=== PATIENT | female | born 1995 | race Caucasian/White ===

== ENCOUNTER 2022-10-04 14:11 | Emergency (ER) | payer SELFPAY ==
[2022-10-04] MEDS ORDERED: Lidocaine 1% PF 5 ML VIAL ONE (15:11)
== END 2022-10-04 15:57 | disposition home or self-care (01) ==
LOC: ERS 14:11
DX: L02.01 Cutaneous abscess of face (principal); E10.9 Type 1 diabetes mellitus without complications; Z79.4 Long term (current) use of insulin
CPT/HCPCS: 10060

== ENCOUNTER 2022-10-23 09:32 | Inpatient (IN) | payer SELFPAY ==
[2022-10-23] MEDS ORDERED: Morphine 2 MG/ML VIAL ONE (10:05)
[2022-10-23] MEDS ORDERED: Ondansetron PF 4 MG/2 ML Vial ONE (10:05)
[2022-10-23 10:26] LABS: Analyzer IN Cardio ER; Base Excess -27.1 mEq/L (-2.0 to +3.0); Calcium, Ionized (venous) 0.98 mmol/L (1.16-1.32); Chloride (VBG) 102 mmol/L (98-106); Hemoglobin (Hb) 16.4 g/dL (11.7-15.5); Sodium 128.7 mmol/L (133-146)
[2022-10-23 10:37] LABS: pH (venous) 6.95 (7.32-7.43)
[2022-10-23 10:38] LABS: Actual Bicarbonate (HCO3v) 4 mEq/L (22-28); Potassium (VBG) 7.78 mmol/L (3.70-5.30)
[2022-10-23 10:55] LABS: Bacteria/HPF None Seen HPF (None Seen); Bilirubin Negative (Negative); Blood, Urine Negative (Negative); Clarity Clear (Clear); Glucose, Urine (Dipstick) Greater than 1000 mg/dL (Negative); Ketone, Urine Greater than 150 mg/dL (Negative); Leukocyte Negative Leu/uL (Negative); Nitrite Negative (Negative); Protein, Urine (Dipstick) 70 mg/dL (Neg-Trace); RBC/HPF None Seen HPF (0-3); Specific Gravity, Urine 1.026 (1.002-1.036); Squamous Epithelial 0-3 HPF (0-3); Urobilinogen Normal mg/dL (Less than 2); WBC/HPF 0-3 HPF (0-3)
[2022-10-23 11:05] LABS: Hemoglobin 14.2 g/dL (12.0-16.0); Mean Corpuscular HGB CONC 31.5 g/dL (32.0-36.0); Mean Corpuscular Hemoglobin 27.3 pg (27.0-31.0); Mean Corpuscular Volume 86.6 fl (78.0-98.0); Platelet Count 336 10x3/uL (130-400); RBC Distribution Width 12.7 % (11.5-14.5); White Blood Cell (WBC) Count 22.1 10x3/uL (4.8-10.8)
[2022-10-23 11:06] LABS: Amphetamine Not Detected (NotDetected); Barbiturates Screen Not Detected (NotDetected); Benzodiazepine Screen Not Detected (NotDetected); Cocaine Metabolite Screen Not Detected (NotDetected); Methadone Not Detected (NotDetected); Methamphetamine Not Detected (NotDetected); Opiate Screen Not Detected (NotDetected); Oxycodone Screen Not Detected (NotDetected); Phencyclidine (PCP) Not Detected (NotDetected); THC/Cannabinoid Screen Not Detected (NotDetected); Tricyclic Screen Not Detected (NotDetected)
[2022-10-23 11:10] LABS: INR-International Normal Ratio 1.4; PTT 25.6 sec (22.9-36.1); Prothrombin Time 17.8 sec (12.0-14.7)
[2022-10-23 11:11] LABS: BHCG - Serum Negative (NEGATIVE); Pregs Control Background? CLEAR/WHITE (CLR/WHITE); Pregs Control Bar Appear? YES (CONTROL BAR)
[2022-10-23 11:11] LABS: SARS-CoV-2 NAA Rapid Test Not Detected (NotDetected)
[2022-10-23 11:17] LABS: ALT (SGPT) 18 U/L (8-55); AST (SGOT) 12 U/L (5-34); Acetaminophen Less than 10.0 mcg/mL (10.0-30.0); Albumin 4.1 g/dL (3.5-5.0); Alcohol Less than 10 mg/dL (Less than 10); Alkaline Phosphatase 81 U/L (40-110); BUN (Urea Nitrogen) 10 mg/dL (7.0-18.7); Bilirubin, Total 0.2 mg/dL (0.2-1.2); CK (CPK) 17 U/L (29-168); Calc. Creatinine Clearance 0 mL/min (70-130); Calcium 8.3 mg/dL (7.8-10.44); Chloride 104 mmol/L (98-107); Estimated GFR 68; Globulin 3.6 g/dL (2.4-3.5); Lipase 6 U/L (8-78); Potassium 5.3 mmol/L (3.5-5.1); Protein, Total 7.7 g/dL (6.0-8.3); Salicylate Less than 8.0 mg/dL (15.0-30.0); Sodium 131 mmol/L (136-145)
[2022-10-23 11:28] LABS: Carbon Dioxide Less than 8 mmol/L (22-29); Glucose 529 mg/dL (70-105)
[2022-10-23 11:31] LABS: Band 10 % (5-11); Lymphocytes 5 % (21-51); MDiff Complete? YES; Monocytes 4 % (0-10); Neutrophil 79 % (42-75); Platelet Morphology Comment Appears Adequate; RBC Morphology Normal; Reactive Lymphocytes 2 % (0-10)
[2022-10-23] MEDS ORDERED: Sodium Bicarb 50 MEQ/50 ML VIAL ONE (11:40)
[2022-10-23] MEDS ORDERED: INSULIN REGULAR IN 0.9 % NACL 100 UNIT/100 ML BAG ONE (12:00)
[2022-10-23] MEDS ORDERED: Cefepime 2 GM VIAL ONE (12:16)
[2022-10-23 12:44] VITALS: TEMP 97.4
[2022-10-23] MEDS ORDERED: Acetaminophen 325 MG TAB PO PRN (12:53)
[2022-10-23] MEDS ORDERED: Sodium Chloride 0.9% 1,000 ML IV PRN ×4 (12:53)
[2022-10-23] MEDS ORDERED: Dextrose 5 %-0.45 % NaCl 1,000 ML IV PRN (12:53)
[2022-10-23] MEDS ORDERED: Electrolyte Replacement Protocol 1 EACH IVPB PRN (12:53)
[2022-10-23] MEDS ORDERED: D5 1/2 NS w/20 mEq KCL 1,000 ML IV PRN (12:53)
[2022-10-23] MEDS ORDERED: NS 0.9% w/ 20 MEQ KCL 1,000 ML IV PRN ×2 (12:53)
[2022-10-23] MEDS ORDERED: Guaifenesin DM 100-10/5 ML UDCUP PO PRN (12:53)
[2022-10-23] MEDS ORDERED: Ipratropium/Albuterol 3 ML NEB NEB SCH (13:00)
[2022-10-23] MEDS ORDERED: HUMULIN R 100 UNITS in Sodium Chloride 0.9% 100 ML IVPB SCH (13:00)
[2022-10-23 13:33] LABS: Analyzer IN Cardio ER; Base Excess (BEa) -24.6 mEq/L (-2.0 to +3.0); Calcium, Ionized (arterial) 1.19 mmol/L (1.12-1.30); Carboxyhemoglobin (COHb) 0.2 gm% (0.0-3.0); O2 Tension (PaO2), arterial 131.4 mmHg (80.0-100.0); Potassium - ABG Lab 3.67 mmol/L (3.70-5.30)
[2022-10-23 13:41] LABS: BUN (Urea Nitrogen) 10 mg/dL (7.0-18.7); Calc. Creatinine Clearance 0 mL/min (70-130); Calcium 8.6 mg/dL (7.8-10.44); Chloride 109 mmol/L (98-107); Estimated GFR 65; Glucose 391 mg/dL (70-105); Potassium 4.4 mmol/L (3.5-5.1); Sodium 138 mmol/L (136-145)
[2022-10-23] MEDS ORDERED: Ipratropium/Albuterol 3 ML NEB ONE (13:53)
[2022-10-23 13:55] LABS: Carbon Dioxide Less than 8 mmol/L (22-29)
[2022-10-23] MEDS ORDERED: Azithromycin 500 MG in Sodium Chloride 0.9% 250 ML 250 ML IVPB SCH (14:00)
[2022-10-23 14:01] LABS: HIV (1/2) Antibody/Antigen Non-Reactive (NonReactive)
[2022-10-23 14:50] LABS: Actual Bicarbonate (HCO3a) 3.4 mEq/L (22-28); CO2 Tension 12.1 mmHg (35.0-45.0); Puncture Site LRA; pH, Arterial 7.07 (7.35-7.45)
[2022-10-23 14:51] LABS: ALV-art Gradient 3.205 mmHg (0-20)
[2022-10-23] MEDS ORDERED: Vancomycin 1 GM/200 ML (FROZEN) BAG ONE (15:08)
[2022-10-23 15:56] VITALS: BP 121/76
[2022-10-23] MEDS ORDERED: Cefepime 1 GM in Sodium Chloride 0.9% 100 ML IVPB SCH (23:59)
== END 2022-10-23 16:50 | disposition left against medical advice (07) | DRG 871 ==
LOC: ERS 09:32 → ERHOLD 12:15
PROVIDERS: ADMIT Internal Medicine; ATTEND Internal Medicine
DX: A41.9 Sepsis, unspecified organism (principal); E10.10 Type 1 diabetes mellitus with ketoacidosis without coma; J18.9 Pneumonia, unspecified organism; E86.0 Dehydration; F41.9 Anxiety disorder, unspecified; Z20.822 Contact with and (suspected) exposure to COVID-19; Z88.8 Allergy status to other drugs, medicaments and biological substances; Z90.49 Acquired absence of other specified parts of digestive tract; Z98.890 Other specified postprocedural states; Z86.16 Personal history of COVID-19; Z87.01 Personal history of pneumonia (recurrent); Z79.4 Long term (current) use of insulin
CPT/HCPCS: 36415; 36416; 36600; 71045; 80053; 80306; 80307; 81003; 81015; 82010; 82550; 82805; 83605; 83690; 83930; 84484; 84703; 85025; 85610; 85730; 87040; 87086; 87389; 93005; 94760; J0692; J1815; J1956; J2272; J2405; J3370-JW; J7620

== ENCOUNTER 2022-10-23 23:32 | Inpatient (IN) | payer MEDICAID, SELFPAY ==
[2022-10-24 00:24] LABS: Bilirubin Negative (Negative); Blood, Urine Negative (Negative); Clarity Clear (Clear); Glucose, Urine (Dipstick) Greater than 1000 mg/dL (Negative); Ketone, Urine Greater than 150 mg/dL (Negative); Leukocyte Negative Leu/uL (Negative); Nitrite Negative (Negative); Protein, Urine (Dipstick) 30 mg/dL (Neg-Trace); RBC/HPF 0-3 HPF (0-3); Specific Gravity, Urine 1.013 (1.002-1.036); Squamous Epithelial 0-3 HPF (0-3); Urobilinogen Normal mg/dL (Less than 2); WBC/HPF 0-3 HPF (0-3)
[2022-10-24 00:26] LABS: Bacteria/HPF 1+ HPF (None Seen)
[2022-10-24] MEDS ORDERED: Cefepime 2 GM VIAL ONE (00:26)
[2022-10-24 00:27] LABS: BHCG - Serum Negative (NEGATIVE); Pregs Control Background? CLEAR/WHITE (CLR/WHITE); Pregs Control Bar Appear? YES (CONTROL BAR)
[2022-10-24 00:29] LABS: Amphetamine Not Detected (NotDetected); Barbiturates Screen Not Detected (NotDetected); Benzodiazepine Screen Not Detected (NotDetected); Cocaine Metabolite Screen Not Detected (NotDetected); Methadone Not Detected (NotDetected); Methamphetamine Not Detected (NotDetected); Opiate Screen Not Detected (NotDetected); Oxycodone Screen Not Detected (NotDetected); Phencyclidine (PCP) Not Detected (NotDetected); THC/Cannabinoid Screen Not Detected (NotDetected); Tricyclic Screen Not Detected (NotDetected)
[2022-10-24 00:36] LABS: Analyzer IN Cardio ER; Calcium, Ionized (venous) 1.07 mmol/L (1.16-1.32); Chloride (VBG) 108 mmol/L (98-106); Potassium (VBG) 5.07 mmol/L (3.70-5.30); Sodium 133.4 mmol/L (133-146)
[2022-10-24 00:52] LABS: Hemoglobin 13.5 g/dL (12.0-16.0); Mean Corpuscular HGB CONC 33.1 g/dL (32.0-36.0); Mean Corpuscular Hemoglobin 28.2 pg (27.0-31.0); Mean Corpuscular Volume 85.2 fl (78.0-98.0); Mean Platelet Volume 10.9 fL (7.4-10.4); Platelet Count 174 10x3/uL (130-400); RBC Distribution Width 13.4 % (11.5-14.5); Red Blood Cell (RBC) Count 4.78 mill/uL (4.20-5.40); White Blood Cell (WBC) Count 13.2 10x3/uL (4.8-10.8)
[2022-10-24 00:52] LABS: pH (venous) 6.82 (7.32-7.43)
[2022-10-24 00:53] LABS: Actual Bicarbonate (HCO3v) 2 mEq/L (22-28); Base Excess -31.1 mEq/L (-2.0 to +3.0)
[2022-10-24 00:54] LABS: Band 30 % (5-11); Lymphocytes 9 % (21-51); MDiff Complete? YES; Neutrophil 61 % (42-75); Platelet Morphology Comment Appears Adequate; RBC Morphology Normal
[2022-10-24] MEDS ORDERED: INSULIN REGULAR IN 0.9 % NACL 100 UNIT/100 ML BAG ONE (01:15)
[2022-10-24 01:27] LABS: Albumin 3.8 g/dL (3.5-5.0)
[2022-10-24 01:29] LABS: Calcium 8.2 mg/dL (7.8-10.44); Chloride 109 mmol/L (98-107); Sodium 132 mmol/L (136-145)
[2022-10-24 01:30] LABS: Globulin 3.8 g/dL (2.4-3.5); Protein, Total 7.6 g/dL (6.0-8.3)
[2022-10-24 01:33] LABS: Alkaline Phosphatase 83 U/L (40-110); Calc. Creatinine Clearance 0 mL/min (70-130); Estimated GFR 62
[2022-10-24 01:34] LABS: BUN (Urea Nitrogen) 8 mg/dL (7.0-18.7)
[2022-10-24 01:35] LABS: AST (SGOT) 11 U/L (5-34); Bilirubin, Total Less than 0.2 mg/dL (0.2-1.2); Carbon Dioxide Less than 8 mmol/L (22-29); Glucose 443 mg/dL (70-105)
[2022-10-24 01:36] LABS: ALT (SGPT) 17 U/L (8-55); Lipase 7 U/L (8-78)
[2022-10-24] MEDS ORDERED: Sodium Bicarb 50 MEQ/50 ML VIAL ONE (01:37)
[2022-10-24 02:01] LABS: Alcohol Less than 10 mg/dL (Less than 10)
[2022-10-24 02:04] LABS: Acetaminophen Less than 10.0 mcg/mL (10.0-30.0); Magnesium 1.8 mg/dL (1.6-2.6); Salicylate Less than 8.0 mg/dL (15.0-30.0)
[2022-10-24] MEDS ORDERED: Dextrose 5 %-0.45 % NaCl 1,000 ML IV PRN (02:22)
[2022-10-24] MEDS ORDERED: NS 0.9% w/ 20 MEQ KCL 1,000 ML IV PRN ×2 (02:22)
[2022-10-24] MEDS ORDERED: Sodium Chloride 0.9% 1,000 ML IV PRN ×4 (02:22)
[2022-10-24] MEDS ORDERED: Electrolyte Replacement Protocol 1 EACH IVPB ONE (02:22)
[2022-10-24] MEDS ORDERED: Senokot S 8.6-50 MG TAB PO PRN (02:23)
[2022-10-24] MEDS ORDERED: Acetaminophen 325 MG TAB PO PRN (02:23)
[2022-10-24] MEDS ORDERED: Calcium Carbonate 500 MG ChewTAB PO PRN (02:23)
[2022-10-24 03:33] LABS: BUN (Urea Nitrogen) 9 mg/dL (7.0-18.7); Calc. Creatinine Clearance 0 mL/min (70-130); Calcium 8.2 mg/dL (7.8-10.44); Chloride 111 mmol/L (98-107); Estimated GFR 73; Glucose 366 mg/dL (70-105); Phosphorus 3.3 mg/dL (2.3-4.7); Potassium 4.6 mmol/L (3.5-5.1); Sodium 135 mmol/L (136-145)
[2022-10-24 03:37] LABS: Carbon Dioxide Less than 8 mmol/L (22-29)
[2022-10-24] MEDS: D5 1/2 NS w/20 mEq KCL 1,000 ML IV PRN ×6 (04:06→23:49)
[2022-10-24 07:07] LABS: BUN (Urea Nitrogen) 8 mg/dL (7.0-18.7); Calc. Creatinine Clearance 82 mL/min (70-130); Chloride 115 mmol/L (98-107); Estimated GFR 83; Glucose 311 mg/dL (70-105); Potassium 4.2 mmol/L (3.5-5.1); Sodium 133 mmol/L (136-145)
[2022-10-24 07:11] LABS: Carbon Dioxide Less than 8 mmol/L (22-29)
[2022-10-24] MEDS ORDERED: Lactated Ringer's 500 ML IV SCH (09:30)
[2022-10-24] MEDS ORDERED: Sodium Bicarbonate 150 MEQ in Dextrose 5% in Water 1,000 ML IV SCH (09:30)
[2022-10-24 11:00] LABS: Anion Gap 13 mmol/L (10-20); BUN (Urea Nitrogen) 8 mg/dL (7.0-18.7); Calc. Creatinine Clearance 85 mL/min (70-130); Calcium 8.2 mg/dL (7.8-10.44); Chloride 115 mmol/L (98-107); Estimated GFR 86; Glucose 266 mg/dL (70-105); Potassium 3.7 mmol/L (3.5-5.1); Sodium 132 mmol/L (136-145)
[2022-10-24 11:03] LABS: Carbon Dioxide 8 mmol/L (22-29)
[2022-10-24 12:53] LABS: Anion Gap 10 mmol/L (10-20); BUN (Urea Nitrogen) 7 mg/dL (7.0-18.7); Calc. Creatinine Clearance 97 mL/min (70-130); Chloride 116 mmol/L (98-107); Estimated GFR 101; Glucose 230 mg/dL (70-105); Potassium 3.4 mmol/L (3.5-5.1); Sodium 132 mmol/L (136-145)
[2022-10-24 12:55] LABS: Carbon Dioxide 9 mmol/L (22-29)
[2022-10-24 13:39] VITALS: BMI 23.9
[2022-10-24] MEDS ORDERED: Electrolyte Replacement Protocol 1 EACH FS SCH (14:45)
[2022-10-24] MEDS: Potassium Chloride 20 MEQ in Premix Bag 1 BAG IVPB SCH ×3 (16:14→22:34)
[2022-10-24] MEDS: HUMULIN R 100 UNITS in Sodium Chloride 0.9% 100 ML IVPB SCH (16:15)
[2022-10-24 16:44] LABS: Anion Gap 10 mmol/L (10-20); BUN (Urea Nitrogen) 5 mg/dL (7.0-18.7); Calc. Creatinine Clearance 99 mL/min (70-130); Calcium 8.1 mg/dL (7.8-10.44); Carbon Dioxide 12 mmol/L (22-29); Chloride 115 mmol/L (98-107); Estimated GFR 103; Glucose 206 mg/dL (70-105); Potassium 2.9 mmol/L (3.5-5.1); Sodium 134 mmol/L (136-145)
[2022-10-24 21:00] LABS: Anion Gap 8 mmol/L (10-20); BUN (Urea Nitrogen) 4 mg/dL (7.0-18.7); Calc. Creatinine Clearance 110 mL/min (70-130); Calcium 8.3 mg/dL (7.8-10.44); Carbon Dioxide 15 mmol/L (22-29); Chloride 114 mmol/L (98-107); Estimated GFR 116; Glucose 150 mg/dL (70-105); Potassium 3.1 mmol/L (3.5-5.1); Sodium 134 mmol/L (136-145)
[2022-10-24 21:32] LABS: Actual Bicarbonate (HCO3v) 16 mEq/L (22-28); Base Excess -6.9 mEq/L (-2.0 to +3.0); Calcium, Ionized (venous) 1.19 mmol/L (1.16-1.32); Chloride (VBG) 111 mmol/L (98-106); Potassium (VBG) 3.02 mmol/L (3.70-5.30); Sodium 134.7 mmol/L (133-146); pH (venous) 7.41 (7.32-7.43)
[2022-10-25] MEDS: Potassium Chloride 20 MEQ in Premix Bag 1 BAG IVPB SCH (00:21)
[2022-10-25 01:33] LABS: Anion Gap 11 mmol/L (10-20); BUN (Urea Nitrogen) Less than 4 mg/dL (7.0-18.7); Calc. Creatinine Clearance 133 mL/min (70-130); Calcium 8.1 mg/dL (7.8-10.44); Carbon Dioxide 17 mmol/L (22-29); Chloride 109 mmol/L (98-107); Estimated GFR 127; Glucose 179 mg/dL (70-105); Potassium 3.1 mmol/L (3.5-5.1); Sodium 134 mmol/L (136-145)
[2022-10-25] MEDS ORDERED: Potassium Chloride 20 MEQ TAB PO SCH (03:15)
[2022-10-25 04:05] LABS: #Eosinphils 0.1 thou/uL (0.0-0.7); #Lymphocytes 2.6 thou/uL (1.20-3.40); #Monocytes 0.8 thou/uL (0.11-0.59); #Neutrophils 9.2 thou/uL (1.40-6.50); %Basophils 0.1 % (0.0-1.0); %Eosinophils 0.4 % (0.0-10.0); %Lymphocytes 20.3 % (21.0-51.0); %Monocytes 6.4 % (0.0-10.0); %Neutrophils 72.8 % (42.0-75.0); Hemoglobin 11.2 g/dL (12.0-16.0); Mean Corpuscular HGB CONC 32.1 g/dL (32.0-36.0); Mean Corpuscular Hemoglobin 27.2 pg (27.0-31.0); Mean Corpuscular Volume 84.5 fl (78.0-98.0); Mean Platelet Volume 7.2 fL (7.4-10.4); Platelet Count 214 10x3/uL (130-400); RBC Distribution Width 12.9 % (11.5-14.5); Red Blood Cell (RBC) Count 4.12 mill/uL (4.20-5.40); White Blood Cell (WBC) Count 12.6 10x3/uL (4.8-10.8)
[2022-10-25 04:13] LABS: Anion Gap 9 mmol/L (10-20); BUN (Urea Nitrogen) Less than 4 mg/dL (7.0-18.7); Calc. Creatinine Clearance 145 mL/min (70-130); Calcium 8.1 mg/dL (7.8-10.44); Carbon Dioxide 17 mmol/L (22-29); Chloride 111 mmol/L (98-107); Estimated GFR 130; Glucose 143 mg/dL (70-105); Potassium 3.1 mmol/L (3.5-5.1); Sodium 134 mmol/L (136-145)
[2022-10-25] MEDS: D5 1/2 NS w/20 mEq KCL 1,000 ML IV PRN ×2 (04:19→08:15)
[2022-10-25 04:26] LABS: Anion Gap 11 mmol/L (10-20); BUN (Urea Nitrogen) Less than 4 mg/dL (7.0-18.7); Calc. Creatinine Clearance 151 mL/min (70-130); Carbon Dioxide 16 mmol/L (22-29); Chloride 112 mmol/L (98-107); Estimated GFR 131; Glucose 144 mg/dL (70-105); Potassium 3.5 mmol/L (3.5-5.1); Sodium 135 mmol/L (136-145)
[2022-10-25 06:37] LABS: Anion Gap 13 mmol/L (10-20); BUN (Urea Nitrogen) Less than 4 mg/dL (7.0-18.7); Calc. Creatinine Clearance 131 mL/min (70-130); Carbon Dioxide 15 mmol/L (22-29); Chloride 108 mmol/L (98-107); Estimated GFR 126; Glucose 305 mg/dL (70-105); Potassium 3.2 mmol/L (3.5-5.1); Sodium 133 mmol/L (136-145)
[2022-10-25] MEDS ORDERED: Potassium Chloride 40 MEQ in Premix Bag 1 BAG IVPB SCH (08:00)
[2022-10-25] MEDS ORDERED: Magnesium 2 GM/50 ML(in water) 2 GM in Premix Bag 1 BAG IVPB SCH (08:00)
[2022-10-25] MEDS: HUMULIN R 100 UNITS in Sodium Chloride 0.9% 100 ML IVPB SCH (08:11)
[2022-10-25] MEDS ORDERED: Insulin Glargine 30 UNITS/0.3 ML VIAL SC SCH (09:00)
[2022-10-25 09:38] LABS: Hemoglobin A1c 11.3 % (4.0-6.0)
[2022-10-25] MEDS ORDERED: HumaLOG 300 UNITS/3 ML VIAL SC PRN (14:53)
[2022-10-25] MEDS ORDERED: Dextrose 50% Abboject 50 ML SYRINGE SLOW IVP PRN (14:53)
[2022-10-25] MEDS ORDERED: Dextrose 5% in Water 1,000 ML IV PRN (14:53)
[2022-10-25 15:45] VITALS: TEMP 98.4
[2022-10-26] MEDS ORDERED: Insulin Glargine 30 UNITS/0.3 ML VIAL SC SCH (09:00)
[2022-10-27] MEDS ORDERED: FLU VACC QS2022-23(6MOS UP)/PF 60 MCG/0.5 ML SYRINGE IM ONE (09:00)
== END 2022-10-25 20:02 | disposition left against medical advice (07) | DRG 637 ==
LOC: ERS 23:32 → IMCU/EMU 10-24 01:54
PROVIDERS: ADMIT Hospitalist; ATTEND Hospitalist
DX: E10.10 Type 1 diabetes mellitus with ketoacidosis without coma (principal); J18.9 Pneumonia, unspecified organism; E86.0 Dehydration; R91.8 Other nonspecific abnormal finding of lung field; U09.9 Post COVID-19 condition, unspecified; R00.0 Tachycardia, unspecified; Z90.49 Acquired absence of other specified parts of digestive tract; Z87.01 Personal history of pneumonia (recurrent); Z88.8 Allergy status to other drugs, medicaments and biological substances
CPT/HCPCS: 36415; 36416; 71045; 80048; 80306; 80307; 81003; 82010; 82805; 83036; 83605; 83690; 83735; 84100; 84443; 84703; 85025; 93005; 96374; 96375; J0692; J1650; J1815; J1956; J3475; J3480; J3490; J7042; J7070; J7120